=== PATIENT | female | born 2000 | race Caucasian/White ===

== ENCOUNTER 2022-07-20 08:19 | Outpatient (CLI) | payer OTHER | END 2022-07-20 08:20 | disposition home or self-care (01) | LOC: SCSMRI 08:19 | PROVIDERS: ATTEND Psychiatry & Neurology Neurology | DX: O90.89 Other complications of the puerperium, not elsewhere classified (principal); Q04.8 Other specified congenital malformations of brain | CPT/HCPCS: 70551 ==

== ENCOUNTER 2023-10-28 09:49 | Emergency (ER) | payer OTHER ==
[2023-10-28 11:34] LABS: #Basophils 0.1 thou/uL (0.0-0.2); #Eosinphils 0.2 thou/uL (0.0-0.7); #Monocytes 0.7 thou/uL (0.11-0.59); #Neutrophils 5.5 thou/uL (1.40-6.50); %Basophils 0.5 % (0.0-1.0); %Eosinophils 2.3 % (0.0-10.0); %Lymphocytes 32.6 % (21.0-51.0); %Monocytes 7.3 % (0.0-10.0); %Neutrophils 56.9 % (42.0-75.0); Hematocrit 38.9 % (36.0-47.0); Hemoglobin 13.2 g/dL (12.0-16.0); Mean Corpuscular HGB CONC 33.9 g/dL (32.0-36.0); Mean Corpuscular Hemoglobin 29.9 pg (27.0-31.0); Mean Corpuscular Volume 88.2 fl (78.0-98.0); Mean Platelet Volume 10.2 fL (7.4-10.4); Platelet Count 360 10x3/uL (130-400); RBC Distribution Width 12.3 % (11.5-14.5); Red Blood Cell (RBC) Count 4.41 mill/uL (4.20-5.40); White Blood Cell (WBC) Count 9.7 10x3/uL (4.8-10.8)
[2023-10-28 11:36] LABS: Bacteria/HPF 1+ HPF (None Seen); Bilirubin Negative (Negative); Blood, Urine Negative (Negative); CAUTI Indications for Culture Pelvic or flank pain; Clarity Clear (Clear); Glucose, Urine (Dipstick) Normal (Negative); Ketone, Urine Negative (Negative); Leukocyte Negative Leu/uL (Negative); Nitrite Negative (Negative); Protein, Urine (Dipstick) Negative (Neg-Trace); RBC/HPF 0-3 HPF (0-3); Specific Gravity, Urine 1.011 (1.002-1.036); Urobilinogen Normal mg/dL (Less than 2); WBC/HPF 0-3 HPF (0-3); pH, Urine 6.5 (5.0-9.0)
[2023-10-28 11:38] LABS: Urine Culture Reflex No No
[2023-10-28 11:47] LABS: BHCG - Serum Negative (NEGATIVE); Pregs Control Background? CLEAR/WHITE (CLR/WHITE); Pregs Control Bar Appear? YES (CONTROL BAR)
[2023-10-28 12:00] LABS: ALT (SGPT) 18 U/L (8-55); AST (SGOT) 15 U/L (5-34); Albumin 4.2 g/dL (3.5-5.0); Alkaline Phosphatase 69 U/L (40-110); Anion Gap 11 mmol/L (10-20); BUN (Urea Nitrogen) 11 mg/dL (7.0-18.7); Bilirubin, Total 0.9 mg/dL (0.2-1.2); Calc. Creatinine Clearance 0 mL/min (70-130); Carbon Dioxide 21 mmol/L (22-29); Chloride 109 mmol/L (98-107); Estimated GFR 120; Globulin 3.1 g/dL (2.4-3.5); Glucose 94 mg/dL (70-105); Lipase 9 U/L (8-78); Potassium 4.1 mmol/L (3.5-5.1); Protein, Total 7.3 g/dL (6.0-8.3); Sodium 137 mmol/L (136-145)
== END 2023-10-28 12:49 | disposition home or self-care (01) ==
LOC: ERS 09:49
DX: K29.70 Gastritis, unspecified, without bleeding (principal); R10.11 Right upper quadrant pain; R11.0 Nausea; Z55.6 Problems related to health literacy; E66.9 Obesity, unspecified
CPT/HCPCS: 36415; 76705; 80053; 81001; 83690; 84703; 85025